=== PATIENT | male | born 1960 | race Caucasian/White ===

== ENCOUNTER → 2019-02-10 | Outpatient (CLI) | payer BC ==
--- NOTE | 2019-02-10 17:51 | Diagnostic Imaging Report ---
PROCEDURE: MRI left upper extremity without contrast. TECHNIQUE: Multiplanar, multisequence non contrast-enhanced MRI of the left upper extremity was accomplished. INDICATION: Left shoulder pain after a fall. COMPARISON: There are no prior studies available for comparison. FINDINGS: On the coronal T2 fat-saturated series there is a broad tear involving at least the anterior half of the insertion of the rotator cuff. The supraspinatus muscle in this area is bunched but the supraspinatus muscle itself is not fully retracted. There is hypertrophy of the acromioclavicular joint and this does result in narrowing of the outlet of the supraspinatus muscle. There is also a small amount of fluid in the subacromial and subdeltoid bursa and this does indicate that there is an element of mild bursitis/tendinitis present as well. The biceps tendon is intact. The distal most portion of the subscapularis tendon just proximal to its attachment to the humeral head is somewhat indistinct and may be partially torn. The labrum is thinned centrally and may be slightly torn on a degenerative basis. The labrum is otherwise intact. There is no evidence for joint effusion. There is no abnormal signal arising from the osseous structures to suggest bone edema or fracture. IMPRESSION: 1. There is a full-thickness tear of at least the anterior half of the rotator cuff. The supraspinatus muscle in the region of the tear is bunched but the supraspinatus muscle is not fully retracted. 2. There is hypertrophy of the acromioclavicular joint and this does result in narrowing of the outlet of the supraspinatus muscle. 3. The small amount of fluid in the subacromial and subdeltoid bursa also indicates that there is an element of mild bursitis/tendinitis present. 4. The indistinct appearance of the distal subscapularis tendon suggests that it is partially torn. 5. The labrum is slightly torn on a degenerative basis. 6. There is no acute bony abnormality appreciated. Dictated by: Dictated on workstation # [id number]
== END ==
LOC: RAD 12:31
PROVIDERS: ATTEND Nurse Practitioner
DX: M75.102 Unspecified rotator cuff tear or rupture of left shoulder, not specified as traumatic (principal); M89.312 Hypertrophy of bone, left shoulder; S43.402A Unspecified sprain of left shoulder joint, initial encounter
CPT/HCPCS: 73221

== ENCOUNTER 2021-07-12 05:32 | Outpatient (RCR) | payer BC, OTHER ==
[~2021-07-12] VITALS: Ht 178 cm; Wt 98.0 kg
[~2021-07-12 05:32] MED LIST: LISI20TA26 PO; METF-399 PO
[2021-07-16] MEDS ORDERED: SUCR1TAB36 PO (11:32)
[2021-07-16] MEDS ORDERED: PANT40TA2 PO (11:32)
== END 2021-07-15 11:00 | disposition home or self-care (01) ==
LOC: PREOP 05:32
PROVIDERS: ATTEND Surgery
DX: Z01.812 Encounter for preprocedural laboratory examination (principal); Z12.11 Encounter for screening for malignant neoplasm of colon; K21.9 Gastro-esophageal reflux disease without esophagitis; Z20.822 Contact with and (suspected) exposure to COVID-19
CPT/HCPCS: 87635

== ENCOUNTER 2021-07-16 09:25 | Day surgery (SDC) | payer BC, OTHER ==
[~2021-07-16] VITALS: Ht 178 cm; Wt 98.0 kg
[2021-07-16] MEDS ORDERED: LACTATED RINGERS 1,000 ML IV ONE (09:28)
[2021-07-16] MEDS ORDERED: HURRICAINE EXT TUBE (BENZOCAINE) XX PRN (09:30)
[2021-07-16] MEDS ORDERED: LACTATED RINGERS 1,000 ML IV STA (09:30)
[2021-07-16 09:45] VITALS: BP 152/112
--- NOTE | 2021-07-16 10:04 | Progress Note-Pre Operative ---
Pre-Operative Progress Note H&P Reviewed The H&P was reviewed, patient examined and no changes noted. Date Seen by Provider: Jul 16, 2021 Time Seen by Provider: 10:04 Date H&P Reviewed: Jul 16, 2021 Time H&P Reviewed: 10:04 Pre-Operative Diagnosis: screening colon, gerd MERVIN PEREZ DO Jul 16, 2021 10:04
[2021-07-16] MEDS ORDERED: PROPOFOL INJECTION 50 ML IV ONE (10:57)
[2021-07-16] MEDS ORDERED: MIDAZOLAM 2 MG/2 ML (VERSED) VIAL ONE (10:57)
[2021-07-16] MEDS ORDERED: SUCR1TAB36 PO (11:32)
[2021-07-16] MEDS ORDERED: PANT40TA2 PO (11:32)
--- NOTE | 2021-07-16 11:33 | Discharge Inst-Simple/Standard ---
Discharge Inst-Standard Discharge Medications New, Converted or Re-Newed RX: Transmitted to Pharmacy Patient Instructions/Follow Up Plan of Care/Instructions/FU: 2 weeks lyndsey Activity as Tolerated: Yes Discharge Diet: Regular Diet MERVIN PEREZ DO Jul 16, 2021 11:33
[2021-07-16 11:35] VITALS: BP 101/70
--- NOTE | 2021-07-16 11:35 | Progress Note-Post Operative ---
Post-Operative Progess Note Surgeon (s)/Shake Packer (s) Surgeon MERVIN PEREZ DO Shake Packer: na Pre-Operative Diagnosis screening colon, gerd Post-Operative Diagnosis duodenal ulcer, reflux esophagitis, diverticulosis Procedure & Operative Findings Date of Procedure 07/16/21 Procedure Performed/Findings egd c biopsies, colonoscopy Anesthesia Type per wagon drill operator Estimated Blood Loss Estimated blood loss (mL): none Specimens/Packing Specimens Removed duodenum, antrum, ge MERVIN PEREZ DO Jul 16, 2021 11:35
[2021-07-16 11:40] VITALS: BP 102/72
[2021-07-16 11:45] VITALS: BP 114/75
[2021-07-16 12:26] VITALS: BP 136/93
--- NOTE | 2021-07-16 13:57 | Anesthesia-General Post-Op ---
MAC Patient Condition Mental Status/LOC: Same as Preop Cardiovascular: Satisfactory Nausea/Vomiting: Absent Respiratory: Satisfactory Pain: Controlled Complications: Absent Post Op Complications Complications None Follow Up Care/Instructions Patient Instructions None needed. Anesthesiology Discharge Order Discharge Order Patient is doing well, no complaints, stable vital signs, no apparent adverse anesthesia problems. No complications reported per nursing. MICHAEL AREVALO CRNA Jul 16, 2021 13:57
--- NOTE | 2021-07-16 17:13 | OPERATIVE REPORT ---
DATE OF SERVICE: 07/16/2021 PREOPERATIVE DIAGNOSES: Screening colonoscopy, gastroesophageal reflux disease. POSTOPERATIVE DIAGNOSES: Duodenal ulcer, reflux esophagitis, diverticulosis. PROCEDURE: EGD with biopsies, colonoscopy. SURGEON: Mervin Stiles DO ANESTHESIA: Per SURVEY ASSOCIATE. ESTIMATED BLOOD LOSS: None. COMPLICATIONS: None. INDICATIONS: The patient is a 60-year-old male with GERD and needing screening colonoscopy. He understands risks and benefits of procedure and wishes to proceed. Consent was signed in the chart. DESCRIPTION OF PROCEDURE: The patient was taken to the endoscopy suite and placed in left lateral recumbent position. Timeout was performed. Scope was inserted in mouth, down the esophagus, stomach and into the duodenum. In the duodenum, there were multiple healing ulcers present. Biopsy of duodenal ulcer was obtained. Scope was slowly retracted back into the stomach where it was further insufflated. Biopsy of the antrum was obtained. No polyps, masses or ulcerations. Scope was retroflexed noting no other pathology. Scope was returned to its normal position, slowly withdrawn to distal esophagus, which had some reflux esophagitis. Biopsy was obtained of the GE junction. Scope was slowly retracted back until completely removed. Digital rectal exam was performed. No palpable polyps, masses or ulcerations. Scope was inserted in the rectum and advanced all the way to cecum with minimal difficulty. No polyps, masses or ulcerations within the cecum, ascending, transverse, descending and sigmoid colon. Throughout the colon some diverticulosis is present. Once in the rectum, scope was retroflexed noting no other pathology except for internal hemorrhoids. Scope was returned to its normal position, slowly withdrawn until completely removed. The patient tolerated the procedure well without any complications, taken to recovery room in stable condition. RECOMMENDATIONS: The patient will need repeat colonoscopy in 10 years unless family history of colon cancer or personal history of colon polyps, which would be 5 years. Any issues before that be seen at that time. The patient will be started on Protonix 40 mg daily and Carafate 1 gram four times a day. Await biopsies. Further recommendations pending biopsy results. Job ID: [id number] DocumentID: [id number] Dictated Date: 07/16/2021 11:38:21 Spine Supervisor Date: 07/16/2021 17:12:51 Dictated By: MERVIN STILES DO
== END 2021-07-16 12:31 | disposition home or self-care (01) ==
LOC: ENDO 09:25
PROVIDERS: ATTEND Surgery
DX: Z12.11 Encounter for screening for malignant neoplasm of colon (principal); K26.9 Duodenal ulcer, unspecified as acute or chronic, without hemorrhage or perforation; K21.00 Gastro-esophageal reflux disease with esophagitis, without bleeding; K57.30 Diverticulosis of large intestine without perforation or abscess without bleeding; K21.9 Gastro-esophageal reflux disease without esophagitis; K29.80 Duodenitis without bleeding; K29.50 Unspecified chronic gastritis without bleeding; B96.81 Helicobacter pylori [H. pylori] as the cause of diseases classified elsewhere; E11.9 Type 2 diabetes mellitus without complications; I10 Essential (primary) hypertension; E66.9 Obesity, unspecified; Z68.31 Body mass index [BMI] 31.0-31.9, adult; Z79.899 Other long term (current) drug therapy; Z79.84 Long term (current) use of oral hypoglycemic drugs
CPT/HCPCS: 82947; 88305

== ENCOUNTER → 2021-08-27 | Outpatient (CLI) | payer OTHER ==
[~2021-08-27] MED LIST changes: +PANT40TA2 PO; +SUCR1TAB36 PO
== END ==
LOC: LAB 15:51
PROVIDERS: ATTEND Surgery
DX: B96.81 Helicobacter pylori [H. pylori] as the cause of diseases classified elsewhere (principal)
CPT/HCPCS: 36415; 87015; 87045; 87046; 87338; 87899